=== PATIENT | female | born 1960 | race Caucasian/White ===

== ENCOUNTER 2021-07-06 11:26 | Emergency (ER) | payer BC ==
[2021-07-06] MEDS ORDERED: Ondansetron 4 MG/2 ML SDV IVPUSH ONE (12:16)
[2021-07-06] MEDS ORDERED: Sodium Chloride 0.9% 10 ML Syringe FLUSH PRN (12:16)
[2021-07-06] MEDS ORDERED: Famotidine 20 MG/2 ML SDV IVPUSH PRN (12:18)
[2021-07-06] MEDS ORDERED: diphenhydrAMINE 50 MG/ML SDV IVPUSH PRN (12:18)
[2021-07-06] MEDS ORDERED: EPINEPHrine 1 MG/ML SDV IM PRN (12:18)
[2021-07-06] MEDS ORDERED: methylPREDNISolone Sodium Succinate 125 MG/2 ML SDV IVPUSH PRN (12:18)
[2021-07-06] MEDS ORDERED: Sodium Chloride 0.9% 10 ML Syringe FLUSH SCH (12:30)
[2021-07-06] MEDS ORDERED: Sodium Chloride 0.9% 1,000 ML IV SCH (12:30)
[2021-07-06] MEDS ORDERED: Bamlanivimab 700 MG, ETESEVIMAB 1,400 MG in Sodium Chloride 0.9% 100 ML IV ONE (12:45)
[2021-07-06] MEDS ORDERED: Acetaminophen 325 MG Tab PO ONE (13:28)
--- NOTE | 2021-07-06 13:40 | EDM.PDOC ---
ED HPI GENERAL MEDICAL PROBLEM - General Chief Complaint: Gastrointestinal Problem Stated Complaint: COVID SYMPTOMS Time Seen by Provider: 07/06/21 12:07 Source of Information: Reports: Patient History Limitations: Reports: No Limitations - History of Present Illness INITIAL COMMENTS - FREE TEXT/NARRATIVE: The patient presents with COVID. She started having symptoms on the . She was tested for COVID on the and she tested positive. She has been having a slight cough, generalized muscle aches, nausea and vomiting. She has no shortness of breath or chest pain. She has no diarrhea. She has no health problems such as asthma, COPD, heart disease, or hypertension. She does not smoke. She was interested in getting the monoclonal antibodies. Onset: Gradual Duration: Day(s): (7) Location: Reports: Generalized Quality: Reports: Ache Severity: Moderate Improves with: Reports: None Worsens with: Reports: None Associated Symptoms: Reports: Cough, Nausea/Vomiting. Denies: Chest Pain, Fever/Chills, Headaches, Shortness of Breath - Related Data Allergies Allergy/AdvReac Type Severity Reaction Status Date / Time Penicillins Allergy Unknown Cannot Verified 07/06/21 12:21 Remember Home Meds: Home Meds Ondansetron [Zofran ODT] 4 mg PO Q6H PRN #20 tab.dis 07/06/21 [Rx] Sertraline [Zoloft] 100 mg PO DAILY 07/06/21 [History] dexAMETHasone [Dexamethasone] 6 mg PO DAILY #12 tab 07/06/21 [Rx] Past Medical History - Infectious Disease History Infectious Disease History: Reports: Novel Coronavirus - Past Surgical History GI Surgical History: Reports: Appendectomy Female Surgical History: Reports: Tubal Ligation Social & Family History - Tobacco Use Tobacco Use Status *Q: Never Tobacco User - Caffeine Use Caffeine Use: Reports: Soda - Recreational Drug Use Recreational Drug Use: No ED ROS GENERAL - Review of Systems Review Of Systems: See Below Constitutional: Reports: Malaise, Weakness, Fatigue. Denies: Fever, Chills HEENT: Reports: No Symptoms Respiratory: Reports: Cough. Denies: Shortness of Breath Cardiovascular: Reports: No Symptoms Endocrine: Reports: Fatigue GI/Abdominal: Reports: Nausea, Vomiting. Denies: Abdominal Pain, Diarrhea : Reports: No Symptoms Musculoskeletal: Reports: Muscle Pain ED EXAM, GI/ABD - Physical Exam Exam: See Below Exam Limited By: No Limitations General Appearance: Alert, No Apparent Distress Ears: Normal External Exam Nose: Normal Inspection Head: Atraumatic, Normocephalic Neck: Normal Inspection Respiratory/Chest: No Respiratory Distress, Decreased Breath Sounds Cardiovascular: Regular Rate, Rhythm, No Edema, No Murmur GI/Abdominal Exam: Soft, Non-Tender, No Organomegaly, No Mass Back Exam: Normal Inspection Extremities: Normal Inspection Course - Vital Signs Last Recorded V/S: Last Vital Signs Temp 97.4 F 07/06/21 12:06 Pulse 92 07/06/21 12:06 Resp 20 07/06/21 12:06 BP 137/76 07/06/21 12:06 Pulse Ox 96 07/06/21 12:06 - Orders/Labs/Meds Orders: Active Orders 24 hr Category Date Time Status Cardiac Monitoring [RC] . DIRECTED Care 07/06/21 12:16 Active Peripheral IV Care [RC] . DIRECTED Care 07/06/21 12:18 Active Vital Signs [RC] Q15M Care 07/06/21 12:18 Active EPINEPHrine [Adrenalin] Med 07/06/21 12:18 Active 0.3 mg IM ASDIRECTED PRN Famotidine [Pepcid] Med 07/06/21 12:18 Active 20 mg IVPUSH ASDIRECTED PRN Sodium Chloride 0.9% [Normal Saline] 1,000 ml Med 07/06/21 12:30 Active IV .BOLUS Sodium Chloride 0.9% [Saline Flush] Med 07/06/21 12:16 Active 10 ml FLUSH ASDIRECTED PRN Sodium Chloride 0.9% [Saline Flush] Med 07/06/21 12:30 Active 30 ml FLUSH ASDIRECTED diphenhydrAMINE [Benadryl] Med 07/06/21 12:18 Active 50 mg IVPUSH ASDIRECTED PRN methylPREDNISolone Sod Succ [Solu-MEDROL] Med 07/06/21 12:18 Active 125 mg IVPUSH ASDIRECTED PRN ED Antiemetic Medication Reflex [OM.PC] Stat Oth 07/06/21 12:17 Ordered Peripheral IV Insertion Adult [OM.PC] Stat Oth 07/06/21 12:16 Ordered Medication Orders Diphenhydramine HCl (Diphenhydramine 50 Mg/Ml Sdv) 50 mg IVPUSH ASDIRECTED PRN PRN Reason: hypersensitivity reaction Epinephrine HCl (Epinephrine 1 Mg/Ml Sdv) 0.3 mg IM ASDIRECTED PRN PRN Reason: hypersensitivity reaction Famotidine (Famotidine 20 Mg/2 Ml Sdv) 20 mg IVPUSH ASDIRECTED PRN PRN Reason: hypersensitivity reaction Sodium Chloride (Normal Saline) 1,000 mls @ 1,000 mls/hr IV .BOLUS SHI Last Admin: 07/06/21 12:46 Dose: 1,000 mls/hr Documented by: ALLYSSA Methylprednisolone Sodium Succinate (Methylprednisolone Sodium Succinate 125 Mg/2 Ml Sdv) 125 mg IVPUSH ASDIRECTED PRN PRN Reason: hypersensitivity reaction Sodium Chloride (Sodium Chloride 0.9% 10 Ml Syringe) 10 ml FLUSH ASDIRECTED PRN PRN Reason: Keep Vein Open Sodium Chloride (Sodium Chloride 0.9% 10 Ml Syringe) 30 ml FLUSH ASDIRECTED SHI Labs: Laboratory Tests 07/06/21 07/06/21 07/06/21 Range/Units 12:33 12:33 12:33 WBC 4.41 (3.98-10.04) K/mm3 RBC 4.61 (3.98-5.22) M/mm3 Hgb 13.6 (11.2-15.7) gm/dl Hct 41.1 (34.1-44.9) % MCV 89.2 (79.4-94.8) fl MCH 29.5 (25.6-32.2) pg MCHC 33.1 (32.2-35.5) g/dl RDW Std Deviation 45.5 (36.4-46.3) fL Plt Count 215 D (182-369) K/mm3 MPV 9.2 L (9.4-12.3) fl Neut % (Auto) 85.5 H (34.0-71.1) % Lymph % (Auto) 10.7 L (19.3-51.7) % [place] % (Auto) 3.6 L (4.7-12.5) % Eos % (Auto) 0 L (0.7-5.8) Baso % (Auto) 0.0 L (0.1-1.2) % Neut # (Auto) 3.77 (1.56-6.13) K/mm3 Lymph # (Auto) 0.47 L (1.18-3.74) K/mm3 [place] # (Auto) 0.16 L (0.24-0.36) K/mm3 Eos # (Auto) 0.00 L (0.04-0.36) K/mm3 Baso # (Auto) 0.00 L (0.01-0.08) K/mm3 PT 9.9 (9.7-12.0) SECONDS INR < 0.93 APTT 32.6 H (21.7-31.4) SECONDS D-Dimer, Quantitative 0.59 H (0.19-0.50) mg/L Sodium 140 (136-145) mEq/L Potassium 4.2 (3.5-5.1) mEq/L Chloride 104 (98-107) mEq/L Carbon Dioxide 24 (21-32) mEq/L Anion Gap 16.2 H (5-15) BUN 18 (7-18) mg/dL Creatinine 1.1 H (0.55-1.02) mg/dL Est Cr Clr Drug Dosing 51.57 mL/min Estimated GFR (MDRD) 50 (>60) mL/min BUN/Creatinine Ratio 16.4 (14-18) Glucose 122 H (70-99) mg/dL Lactic Acid (0.4-2.0) mmol/L Calcium 8.7 (8.5-10.1) mg/dL Total Bilirubin 0.3 (0.2-1.0) mg/dL AST 33 (15-37) U/L ALT 34 (14-59) U/L Alkaline Phosphatase 50 (46-116) U/L C-Reactive Protein 14.7 H* (<1.0) mg/dL Total Protein 8.5 H (6.4-8.2) g/dl Albumin 3.6 (3.4-5.0) g/dl Globulin 4.9 gm/dL Albumin/Globulin Ratio 0.7 L (1-2) 07/06/21 Range/Units 12:33 WBC (3.98-10.04) K/mm3 RBC (3.98-5.22) M/mm3 Hgb (11.2-15.7) gm/dl Hct (34.1-44.9) % MCV (79.4-94.8) fl MCH (25.6-32.2) pg MCHC (32.2-35.5) g/dl RDW Std Deviation (36.4-46.3) fL Plt Count (182-369) K/mm3 MPV (9.4-12.3) fl Neut % (Auto) (34.0-71.1) % Lymph % (Auto) (19.3-51.7) % [place] % (Auto) (4.7-12.5) % Eos % (Auto) (0.7-5.8) Baso % (Auto) (0.1-1.2) % Neut # (Auto) (1.56-6.13) K/mm3 Lymph # (Auto) (1.18-3.74) K/mm3 [place] # (Auto) (0.24-0.36) K/mm3 Eos # (Auto) (0.04-0.36) K/mm3 Baso # (Auto) (0.01-0.08) K/mm3 PT (9.7-12.0) SECONDS INR APTT (21.7-31.4) SECONDS D-Dimer, Quantitative (0.19-0.50) mg/L Sodium (136-145) mEq/L Potassium (3.5-5.1) mEq/L Chloride (98-107) mEq/L Carbon Dioxide (21-32) mEq/L Anion Gap (5-15) BUN (7-18) mg/dL Creatinine (0.55-1.02) mg/dL Est Cr Clr Drug Dosing mL/min Estimated GFR (MDRD) (>60) mL/min BUN/Creatinine Ratio (14-18) Glucose (70-99) mg/dL Lactic Acid 1.5 (0.4-2.0) mmol/L Calcium (8.5-10.1) mg/dL Total Bilirubin (0.2-1.0) mg/dL AST (15-37) U/L ALT (14-59) U/L Alkaline Phosphatase (46-116) U/L C-Reactive Protein (<1.0) mg/dL Total Protein (6.4-8.2) g/dl Albumin (3.4-5.0) g/dl Globulin gm/dL Albumin/Globulin Ratio (1-2) Meds: Medications Generic Name Dose Route Start Last Admin Trade Name Freq PRN Reason Stop Dose Admin Diphenhydramine HCl 50 mg 07/06/21 12:18 Diphenhydramine 50 Mg/Ml Sdv IVPUSH ASDIRECTED PRN hypersensitivity reaction Epinephrine HCl 0.3 mg 07/06/21 12:18 Epinephrine 1 Mg/Ml Sdv IM ASDIRECTED PRN hypersensitivity reaction Famotidine 20 mg 07/06/21 12:18 Famotidine 20 Mg/2 Ml Sdv IVPUSH ASDIRECTED PRN hypersensitivity reaction Sodium Chloride 1,000 mls @ 1,000 mls/hr 07/06/21 12:30 07/06/21 12:46 Normal Saline IV 1,000 mls/hr .BOLUS SHI Administration Methylprednisolone Sodium Succinate 125 mg 07/06/21 12:18 Methylprednisolone Sodium Succinate 125 Mg/2 Ml Sdv IVPUSH ASDIRECTED PRN hypersensitivity reaction Sodium Chloride 10 ml 07/06/21 12:16 Sodium Chloride 0.9% 10 Ml Syringe FLUSH ASDIRECTED PRN Keep Vein Open Sodium Chloride 30 ml 07/06/21 12:30 Sodium Chloride 0.9% 10 Ml Syringe FLUSH ASDIRECTED SHI Discontinued Medications Generic Name Dose Route Start Last Admin Trade Name Balwinderq PRN Reason Stop Dose Admin Acetaminophen 975 mg 07/06/21 13:28 07/06/21 13:41 Acetaminophen 325 Mg Tab PO 07/06/21 13:29 975 mg NOW ONE Administration Bamlanivimab 700 mg/ 160 mls @ 310 mls/hr 07/06/21 12:45 07/06/21 12:46 Etesevimab 1,400 mg/ Sodium IV 07/06/21 13:15 310 mls/hr Chloride ONETIME ONE Administration Ondansetron HCl 4 mg 07/06/21 12:16 07/06/21 12:32 Ondansetron 4 Mg/2 Ml Sdv IVPUSH 07/06/21 12:17 4 mg ONETIME ONE Administration - Re-Assessments/Exams Free Text/Narrative Re-Assessment/Exam: 07/06/21 13:37 I ordered an IV NS 1L bolus, zofran 4mg IV, regen-COV IV, CXR and labs. Her CXR shows mild bilateral infiltrates consistent with COVID 19. Her CBC looks good. Her D-dimer was elevated at 0.59 consistent with COVID 19. Her creatinine was slightly elevated at 1.1. Her CRP is elevated at 14.7. She is still getting the Regen-COV. 07/06/21 14:18 She feels better. I will discharge her on some zofran and dexamethasone. Departure - Departure Time of Disposition: 14:20 Disposition: Home, Self-Care 01 Condition: Good Clinical Impression: COVID-19, Pneumonia due to COVID-19 virus Nausea and vomiting Qualifiers: Vomiting type: unspecified Vomiting Intractability: non-intractable Qualified Code(s): R11.2 - Nausea with vomiting, unspecified - Discharge Information *PRESCRIPTION DRUG MONITORING PROGRAM REVIEWED*: Not Applicable *COPY OF PRESCRIPTION DRUG MONITORING REPORT IN PATIENT MARCELO: Not Applicable Prescriptions: dexAMETHasone [Dexamethasone] 6 mg PO DAILY #12 tab Ondansetron [Zofran ODT] 4 mg PO Q6H PRN #20 tab.dis PRN Reason: Nausea\vomiting Referrals: Addie Manuel DATA SECURITY COORDINATOR [Primary Care Provider] - 1 Week Forms: ED Department Discharge Additional Instructions: Drink plenty of fluids. Take tylenol or motrin for any fever or pain. Take the zofran every 6 hours as needed for nausea and vomiting. Take the dexamethasone 1.5 pills daily until gone. Try to lay on your stomach. That helps oxygenate more lung tissue. Please return if you are worse. Sepsis Event Note (ED) - Focused Exam Vital Signs: Vital Signs Temp Pulse Resp BP Pulse Ox 07/06/21 12:06 97.4 F 92 20 137/76 96 - My Orders Last 24 Hours: My Active Orders 07/06/21 12:16 Cardiac Monitoring [RC] . DIRECTED Sodium Chloride 0.9% [Saline Flush] 10 ml FLUSH ASDIRECTED PRN Peripheral IV Insertion Adult [OM.PC] Stat 07/06/21 12:17 ED Antiemetic Medication Reflex [OM.PC] Stat 07/06/21 12:18 Peripheral IV Care [RC] . DIRECTED Vital Signs [RC] Q15M EPINEPHrine [Adrenalin] 0.3 mg IM ASDIRECTED PRN Famotidine [Pepcid] 20 mg IVPUSH ASDIRECTED PRN diphenhydrAMINE [Benadryl] 50 mg IVPUSH ASDIRECTED PRN methylPREDNISolone Sod Succ [Solu-MEDROL] 125 mg IVPUSH ASDIRECTED PRN 07/06/21 12:30 Sodium Chloride 0.9% [Normal Saline] 1,000 ml IV .BOLUS Sodium Chloride 0.9% [Saline Flush] 30 ml FLUSH ASDIRECTED - Assessment/Plan Last 24 Hours: My Active Orders 07/06/21 12:16 Cardiac Monitoring [RC] . DIRECTED Sodium Chloride 0.9% [Saline Flush] 10 ml FLUSH ASDIRECTED PRN Peripheral IV Insertion Adult [OM.PC] Stat 07/06/21 12:17 ED Antiemetic Medication Reflex [OM.PC] Stat 07/06/21 12:18 Peripheral IV Care [RC] . DIRECTED Vital Signs [RC] Q15M EPINEPHrine [Adrenalin] 0.3 mg IM ASDIRECTED PRN Famotidine [Pepcid] 20 mg IVPUSH ASDIRECTED PRN diphenhydrAMINE [Benadryl] 50 mg IVPUSH ASDIRECTED PRN methylPREDNISolone Sod Succ [Solu-MEDROL] 125 mg IVPUSH ASDIRECTED PRN 07/06/21 12:30 Sodium Chloride 0.9% [Normal Saline] 1,000 ml IV .BOLUS Sodium Chloride 0.9% [Saline Flush] 30 ml FLUSH ASDIRECTED
--- NOTE | 2021-07-06 13:43 | CR ---
Chest: Portable chest was obtained. Comparison: No prior chest x-ray is available. Heart size and mediastinum are normal. Slight patchy areas of increased density are seen throughout both sides of the chest. Findings most severe within the left lung base. Bony structures show nothing acute. Impression: 1. Slight patchy areas of increased density within both sides of the chest worse within the left lung. Please correlate if this represents mild areas of pneumonia, please exclude COVID etiology. Diagnostic code #3
== END 2021-07-06 14:34 | disposition home or self-care (01) ==
LOC: JD.ED 11:26
DX: U07.1 COVID-19 (principal); J12.82 Pneumonia due to coronavirus disease 2019; R11.2 Nausea with vomiting, unspecified; Z88.0 Allergy status to penicillin
CPT/HCPCS: 36415; 71045; 80053; 83605; 85025; 85379; 85610; 85730; 86140; 96374; 99284; A9270; J2405; J7030; M0245; Q0245